=== PATIENT | male | born 1995 | race African-American/Black ===

== ENCOUNTER 2021-07-16 14:16 | Emergency (ER) | payer SELFPAY ==
[~2021-07-16] VITALS: Ht 185.4 cm; Wt 72.6 kg
[2021-07-16] MEDS ORDERED: AZITHROMYCIN 250 MG TAB PO ONE (15:00)
[2021-07-16] MEDS ORDERED: CEFTRIAXONE 500 MG VIAL IM ONE (15:00)
[2021-07-16] MEDS ORDERED: ANUSOL-HC30 GM RC (15:04)
[2021-07-16] MEDS ORDERED: AZITHROMYCIN 250 MG TAB ONE (15:11)
[2021-07-16] MEDS ORDERED: CEFTRIAXONE 500 MG VIAL ONE (15:12)
[2021-07-16] MEDS ORDERED: LIDOCAINE HCL 1% LOCAL INJ 20 ML VIAL ONE (15:12)
[2021-07-16] MEDS ORDERED: PENICILLIN G BENZATHINE LA 1.2 MU TBX ONE (15:12)
[2021-07-16] MEDS ORDERED: PENICILLIN G BENZATHINE LA 1.2 MU TBX IM ONE (15:15)
== END 2021-07-16 15:59 | disposition home or self-care (01) ==
LOC: FSED 14:22
DX: A51.49 Other secondary syphilitic conditions (principal); F17.210 Nicotine dependence, cigarettes, uncomplicated
CPT/HCPCS: 99282; J0561; J0696; J2001